=== PATIENT | female | born 1985 ===

== ENCOUNTER 2017-11-23 14:13 | Emergency (ER) | payer OTHER ==
[~2017-11-23] VITALS: Ht 160 cm; Wt 72.6 kg
[~2017-11-23 14:13] MED LIST: AMOX500 PO; ASPI325; AZO URINARY PAI95 MG PO; FLUC150A PO; GUAPSEER PO; HYDACE5 PO; HYDGUAL120 PO; IBUP200; Keflex500 MG PO; OXYACE5T PO; PENVK500 PO; PROM25 PO; PSETRI PO; [UNRECOGNIZED DRUG - OTHER]
[2017-11-23] MEDS ORDERED: Bactrim Ds Tab1 EACH PO (15:45)
[2017-11-23] MEDS ORDERED: Pyridium200 MG PO (15:45)
[2017-11-23 15:53] LABS: Source, Urine Clean Catch
[2017-11-23] MEDS ORDERED: FLUC150A PO (15:54)
[2017-11-23 15:57] LABS: Appearance, Urine Hazy (Clear); Bilirubin, Urine Neg (Neg); Blood, Urine 5+ (Neg); Color, Urine Yellow (P-Yellow); Glucose Qualitative, Urine Neg (Neg); Ketones, Urine 2+ (Neg); Leukocyte Esterase, Urine 3+ (Neg); Nitrite, Urine Neg (Neg); Protein, Urine 2+ (Neg); Specific Gravity, Urine 1.015 (1.003-1.022); Urobilinogen, Urine NORM (Normal); pH, Urine 6.5 (5.0-8.0)
[2017-11-23 16:18] LABS: Bacteria Mod /hpf; Red Blood Cells, Urine 50-100 /hpf (0-2); Squamous Epithelial Cells Not Seen /hpf (Few); White Blood Cells, Urine 50-100 /hpf (0-5)
== END 2017-11-23 16:01 | disposition home or self-care (01) ==
LOC: ER 14:13
PROVIDERS: Psychiatry & Neurology Psychiatry
DX: N39.0 Urinary tract infection, site not specified (principal); F17.200 Nicotine dependence, unspecified, uncomplicated; Z91.040 Latex allergy status; Z79.899 Other long term (current) drug therapy
CPT/HCPCS: 81001; 81025; 87077; 87086; 87186; 99283

== ENCOUNTER 2019-06-04 22:21 | Emergency (ER) | payer OTHER ==
[~2019-06-04] VITALS: Ht 160 cm; Wt 65.3 kg
[~2019-06-04 22:21] MED LIST changes: +Bactrim Ds Tab1 EACH PO; +Pyridium200 MG PO
[2019-06-04 22:38] LABS: Source, Urine Clean Catch
[2019-06-04 22:46] LABS: Bilirubin, Urine Neg (Neg); Blood, Urine 2+ (Neg); Glucose Qualitative, Urine Neg (Neg); Ketones, Urine Neg (Neg); Leukocyte Esterase, Urine 1+ (Neg); Nitrite, Urine Neg (Neg); Protein, Urine Neg (Neg); Urobilinogen, Urine NORM (Normal); pH, Urine 6.5 (5.0-8.0)
[2019-06-04 22:47] LABS: Appearance, Urine Clear (Clear); Color, Urine Yellow (P-Yellow)
[2019-06-04 22:57] LABS: Bacteria Few /hpf; Red Blood Cells, Urine 0-2 /hpf (0-2); Squamous Epithelial Cells Mod /hpf (Few)
== END 2019-06-05 00:45 | disposition home or self-care (01) ==
LOC: ER 22:21
PROVIDERS: Physician Assistant
DX: N13.2 Hydronephrosis with renal and ureteral calculous obstruction (principal); F17.210 Nicotine dependence, cigarettes, uncomplicated
CPT/HCPCS: 76770; 81001; 87086; 99284-25